=== PATIENT | female | born 1950 | race Asian ===

== ENCOUNTER 2017-10-07 14:32 | Emergency (ER) | payer MEDICARE ==
[~2017-10-07] VITALS: Ht 157.5 cm; Wt 63.3 kg
[2017-10-07 14:34] VITALS: BP 160/62
[2017-10-07] MEDS ORDERED: ALBUTEROL/IPRATROPIUM 2.5MG/0.5MG, 3 ML NPPB ONE (15:30)
[2017-10-07] MEDS ORDERED: ALBUTEROL/IPRATROPIUM 2.5MG/0.5MG, 3 ML ONE (15:31)
== END 2017-10-07 15:55 | disposition home or self-care (01) ==
LOC: ED 15:49
DX: J98.01 Acute bronchospasm (principal); E11.9 Type 2 diabetes mellitus without complications; I10 Essential (primary) hypertension
CPT/HCPCS: 71046; 94640; 99284; J7512; J7620

== ENCOUNTER 2020-09-13 19:20 | Emergency (ER) | payer MEDICARE ==
[~2020-09-13] VITALS: Ht 157.5 cm; Wt 67.0 kg
--- NOTE | 2020-09-13 19:26 | NUR ---
CALLED 1X NIL
[2020-09-13] MEDS ORDERED: SODIUM CHLORIDE FLUSH 10ML SYR IVF ONE (20:00)
--- NOTE | 2020-09-13 21:00 | NUR ---
NO ANSWER X2 FOR BLOOD DRAW IN LOBBY
[2020-09-13 22:16] VITALS: BP 199/94
[2020-09-14] MEDS ORDERED: BUDE10.22 INH (02:35)
[2020-09-14] MEDS ORDERED: CLON0.1T2 PO (02:35)
[2020-09-14] MEDS ORDERED: CYAN250013 PO (02:35)
[2020-09-14] MEDS ORDERED: CHOL1POW PO (02:35)
[2020-09-14] MEDS ORDERED: ASCO120P2 PO (02:35)
[2020-09-14] MEDS ORDERED: MULT-826 PO (02:35)
[2020-09-14] MEDS ORDERED: ROSU40TA22 PO (02:35)
[2020-09-14] MEDS ORDERED: LEVO25TA2 PO (02:35)
[2020-09-14] MEDS ORDERED: LOSA25TA12 PO (02:35)
[2020-09-14] MEDS ORDERED: FAMO25PO2 PO (02:35)
[2020-09-14] MEDS ORDERED: DULA1.5P INJ (09:50)
== END 2020-09-13 22:46 | disposition left against medical advice (07) ==
LOC: ED 20:00
DX: I10 Essential (primary) hypertension (principal); R22.43 Localized swelling, mass and lump, lower limb, bilateral; R07.9 Chest pain, unspecified; R14.0 Abdominal distension (gaseous); R94.31 Abnormal electrocardiogram [ECG] [EKG]; E11.9 Type 2 diabetes mellitus without complications
CPT/HCPCS: 71045; 93005; 99283

== ENCOUNTER 2020-09-13 23:19 | Inpatient (IN) | payer MEDICARE ==
[~2020-09-13] VITALS: Ht 157.5 cm; Wt 69.1 kg
[2020-09-14] VITALS (8 sets, daily range): BP systolic 160–210; BP diastolic 75–106
[2020-09-14] MEDS ORDERED: LABETALOL 5MG/ML, 20ML IVPush ONE
[2020-09-14] MEDS ORDERED: SODIUM CHLORIDE FLUSH 10ML SYR IVF ONE
[2020-09-14 00:13] LABS: BASOPHILS % (AUTO) 1 % (0-1); EOSINOPHILS % (AUTO) 4 % (1-7); LYMPHOCYTES % (AUTO) 11 % (22-44); MEAN CORPUSCULAR HEMOGLOBIN 32.3 pg (27.0-34.8); MEAN CORPUSCULAR HGB CONC 33.8 g/dL (32.4-35.8); MEAN PLATELET VOLUME 8.4 fL (7.4-10.4); MONOCYTES % (AUTO) 8 % (2-9); NEUTROPHILS % (AUTO) 76 % (42-75); PLATELET COUNT 290 x10^3/uL (130-400); RED BLOOD COUNT 2.94 x10^6/uL (3.82-5.3); RED CELL DISTRIBUTION WIDTH 13.2 % (9.6-15.2)
[2020-09-14 00:14] LABS: MD NO
[2020-09-14] MEDS ORDERED: NITROGLYCERIN OINT 2%, 1GM TP ONE ×2 (00:14)
[2020-09-14] MEDS ORDERED: LABETALOL 5MG/ML, 20ML ONE (00:14)
[2020-09-14 00:24] LABS: ALANINE AMINOTRANSFERASE 22 U/L (12-78); ALBUMIN 1.8 g/dL (3.4-5.0); ANION GAP 4 mmol/L (5-15); CALCIUM 7.8 mg/dL (8.5-10.1); CHLORIDE 115 mmol/L (98-107); CREATININE 2.48 mg/dL (0.55-1.02)
[2020-09-14 00:28] LABS: ALKALINE PHOSPHATASE 90 U/L (45-117); BILIRUBIN,TOTAL 0.2 mg/dL (0.2-1.0); TOTAL PROTEIN 4.8 g/dL (6.4-8.2); TROPONIN I < 0.015 ng/mL (0.000-0.045)
[2020-09-14] MEDS ORDERED: FUROSEMIDE 40 MG/4 ML IVPush ONE (01:00)
[2020-09-14] MEDS ORDERED: SODIUM CHLORIDE 0.9% 1,000 ML IV ONE (01:00)
[2020-09-14] MEDS ORDERED: FUROSEMIDE 40 MG/4 ML ONE (02:12)
[2020-09-14] MEDS ORDERED: ONDANSETRON ODT 4 MG PO PRN (02:30)
[2020-09-14] MEDS ORDERED: OXYcodone IR 5MG TABLET PO PRN (02:30)
[2020-09-14] MEDS ORDERED: ONDANSETRON 2MG/ML, 2ML IVPush PRN (02:30)
[2020-09-14] MEDS ORDERED: DOCUSATE 100 MG CAPSULE PO PRN (02:30)
[2020-09-14] MEDS ORDERED: morphine SULFATE 10 MG/ML, 1ML IVPush PRN (02:30)
[2020-09-14] MEDS ORDERED: POLYETHYLENE GLYCOL 17 GM PACKET PO PRN (02:30)
[2020-09-14] MEDS ORDERED: BISACODYL 10 MG SUPP PR PRN (02:30)
[2020-09-14] MEDS ORDERED: PROMETHAZINE 25 MG/ML, 1ML IM PRN (02:30)
[2020-09-14] MEDS ORDERED: BUDE10.22 INH (02:35)
[2020-09-14] MEDS ORDERED: FAMO25PO2 PO (02:35)
[2020-09-14] MEDS ORDERED: LEVO25TA2 PO (02:35)
[2020-09-14] MEDS ORDERED: CHOL1POW PO (02:35)
[2020-09-14] MEDS ORDERED: CLON0.1T2 PO (02:35)
[2020-09-14] MEDS ORDERED: MULT-826 PO (02:35)
[2020-09-14] MEDS ORDERED: CYAN250013 PO (02:35)
[2020-09-14] MEDS ORDERED: ROSU40TA22 PO (02:35)
[2020-09-14] MEDS ORDERED: ASCO120P2 PO (02:35)
[2020-09-14] MEDS ORDERED: LOSA25TA12 PO (02:35)
--- NOTE | 2020-09-14 02:51 | NUR ---
Pt calm in bed. Pt mediated per order. Pt remains A&O. Pt with littel changes in BP. Pt states pain in left shoulder has improved. Pt needs met. Call light in reach. Will continue to monitor.
[2020-09-14] MEDS ORDERED: HEPARIN 5,000 UNITS/ML, 1ML ONE (04:06)
[2020-09-14] MEDS: HEPARIN 5,000 UNITS/ML, 1ML SQ SCH ×3 (04:09→21:00)
--- NOTE | 2020-09-14 04:22 | NUR ---
Pt calm in bed. No needs at this time. Pt with no changes. BP remains elevated. Pt denies CP or SOB. Needs met. Call light in reach.
--- NOTE | 2020-09-14 05:11 | NUR ---
Pt up to BR, stable on feet. Denies any lightheadedness. Denies CP or SOB. pt back to bed, on monitor. Needs met. Call light in reach. Will monitor.
--- NOTE | 2020-09-14 06:01 | NUR ---
Pt resting, no changes. Call light in reach. Needs met.
--- NOTE | 2020-09-14 07:00 | NUR ---
Report from alma hutchison With assessment Patient reports arm/chest pain "totally gone" bp 172/99 updated on estimated poc moved to hospital bed fingerstick blood sugar checked (75)-then breakfast meal provided
[2020-09-14] MEDS ORDERED: LIDODERM 5% PATCH TD ONE ×2 (09:03→09:30)
[2020-09-14 09:22] LABS: ALBUMIN 1.8 g/dL (3.4-5.0); ANION GAP 7 mmol/L (5-15); CALCIUM 8.2 mg/dL (8.5-10.1); CHLORIDE 118 mmol/L (98-107)
[2020-09-14 09:25] LABS: ALANINE AMINOTRANSFERASE 19 U/L (12-78); ALKALINE PHOSPHATASE 77 U/L (45-117); BILIRUBIN,TOTAL 0.6 mg/dL (0.2-1.0); CREATININE 2.56 mg/dL (0.55-1.02); TOTAL PROTEIN 4.9 g/dL (6.4-8.2)
[2020-09-14] MEDS ORDERED: DULA1.5P INJ (09:50)
[2020-09-14] MEDS: hydrALAzine 20 MG/ML, 1ML IVPush PRN ×3 (12:22→17:18)
[2020-09-14] MEDS: LABETALOL 5MG/ML, 20ML IVPush PRN ×2 (13:43→18:49)
[2020-09-14 13:52] LABS: CHLORIDE,URINE RANDOM 83 mmol/L; POTASSIUM,URINE RANDOM 31 mmol/L; SODIUM,URINE RANDOM 69 mmol/L
[2020-09-14 13:54] LABS: MICROSCOPIC AUTO
[2020-09-14] MEDS: INSULIN LISPRO 100 UNITS/ML, PEN SQ-INSULIN SCH ×2 (16:30→20:32)
[2020-09-14] MEDS ORDERED: GLUCAGON 1 MG IM PRN (16:30)
[2020-09-14] MEDS ORDERED: DEXTROSE 50%, 50ML SYRINGE IVPush PRN (16:30)
[2020-09-14] MEDS ORDERED: DEXTROSE 4 GM TAB.CHEW PO PRN (16:30)
[2020-09-14] MEDS: ACETAMINOPHEN 325 MG TABLET PO PRN ×2 (16:43→21:06)
[2020-09-14] MEDS: CARVEDILOL 12.5 MG TABLET PO SCH (17:16)
[2020-09-14] MEDS: SODIUM CHLORIDE FLUSH 10ML SYR IVF SCH (21:00)
[2020-09-15] VITALS (7 sets, daily range): BP systolic 164–199; BP diastolic 73–89
[2020-09-15] MEDS: LABETALOL 5MG/ML, 20ML IVPush PRN (01:30)
[2020-09-15] MEDS: hydrALAzine 20 MG/ML, 1ML IVPush PRN ×2 (02:58→11:23)
[2020-09-15] MEDS: HEPARIN 5,000 UNITS/ML, 1ML SQ SCH ×3 (04:26→20:27)
[2020-09-15 05:01] LABS: BASOPHILS % (AUTO) 1 % (0-1); EOSINOPHILS % (AUTO) 2 % (1-7); LYMPHOCYTES % (AUTO) 10 % (22-44); MEAN CORPUSCULAR HEMOGLOBIN 31.6 pg (27.0-34.8); MEAN CORPUSCULAR HGB CONC 33.4 g/dL (32.4-35.8); MEAN PLATELET VOLUME 8.3 fL (7.4-10.4); MONOCYTES % (AUTO) 9 % (2-9); NEUTROPHILS % (AUTO) 79 % (42-75); PLATELET COUNT 272 x10^3/uL (130-400); RED BLOOD COUNT 2.88 x10^6/uL (3.82-5.3); RED CELL DISTRIBUTION WIDTH 13.2 % (9.6-15.2)
[2020-09-15 05:02] LABS: MD NO
[2020-09-15] MEDS: CARVEDILOL 12.5 MG TABLET PO SCH (05:09)
[2020-09-15 05:15] LABS: CHLORIDE 119 mmol/L (98-107)
[2020-09-15 05:43] LABS: ALANINE AMINOTRANSFERASE 16 U/L (12-78); ALBUMIN 1.7 g/dL (3.4-5.0); ALKALINE PHOSPHATASE 69 U/L (45-117); ANION GAP 7 mmol/L (5-15); BILIRUBIN,TOTAL 0.3 mg/dL (0.2-1.0); CHOL/HDL RATIO 4.5; CHOLESTEROL, TOTAL 239 mg/dL (140-239); CREATININE 2.41 mg/dL (0.55-1.02); HDL CHOL % 22 % (28-40); HDL CHOLESTEROL (DIRECT) 53 mg/dL (40-60); LDL CHOLESTEROL,CALCULATED 145 mg/dL (54-169); LDL/HDL RATIO 2.7 (0.5-3.0); TOTAL PROTEIN 4.7 g/dL (6.4-8.2); TRIGLYCERIDES 203 mg/dL (50-200); VLDL CHOLESTEROL 41 mg/dL (0-25)
[2020-09-15] MEDS: INSULIN LISPRO 100 UNITS/ML, PEN SQ-INSULIN SCH ×4 (07:00→20:27)
[2020-09-15] MEDS ORDERED: FUROSEMIDE 40 MG/4 ML IV SCH (09:00)
[2020-09-15] MEDS: SODIUM CHLORIDE FLUSH 10ML SYR IVF SCH ×2 (09:32→20:27)
[2020-09-15] MEDS ORDERED: HYDR-3342 PO (11:05)
[2020-09-15] MEDS ORDERED: CARV-39 PO (11:05)
[2020-09-15] MEDS ORDERED: FUROSEMIDE 40 MG TABLET PO SCH (12:00)
[2020-09-15] MEDS: POTASSIUM CHLORIDE 20 MEQ PACKET PO SCH (13:59)
[2020-09-15] MEDS: FUROSEMIDE 40 MG TABLET PO SCH (16:56)
[2020-09-15] MEDS: CARVEDILOL 25 MG TABLET PO SCH (17:01)
[2020-09-16] VITALS (15 sets, daily range): BP systolic 158–202; BP diastolic 74–91
[2020-09-16] MEDS: hydrALAzine 20 MG/ML, 1ML IVPush PRN ×3 (02:07→14:24)
[2020-09-16] MEDS: LABETALOL 5MG/ML, 20ML IVPush PRN ×3 (02:41→15:48)
[2020-09-16] MEDS: HEPARIN 5,000 UNITS/ML, 1ML SQ SCH ×3 (04:00→20:54)
[2020-09-16] MEDS ORDERED: hydrALAzine 20 MG/ML, 1ML IV ONE (04:30)
[2020-09-16 05:06] LABS: BASOPHILS % (AUTO) 1 % (0-1); EOSINOPHILS % (AUTO) 4 % (1-7); LYMPHOCYTES % (AUTO) 16 % (22-44); MEAN CORPUSCULAR HGB CONC 33.8 g/dL (32.4-35.8); MEAN PLATELET VOLUME 9.1 fL (7.4-10.4); MONOCYTES % (AUTO) 9 % (2-9); NEUTROPHILS % (AUTO) 70 % (42-75); PLATELET COUNT 296 x10^3/uL (130-400); RED BLOOD COUNT 3.08 x10^6/uL (3.82-5.3); RED CELL DISTRIBUTION WIDTH 13.5 % (9.6-15.2)
[2020-09-16 05:10] LABS: ANION GAP 7 mmol/L (5-15); CALCIUM 8.9 mg/dL (8.5-10.1); CHLORIDE 116 mmol/L (98-107); CREATININE 2.43 mg/dL (0.55-1.02); MD NO
[2020-09-16] MEDS: CARVEDILOL 25 MG TABLET PO SCH ×2 (05:50→17:12)
[2020-09-16] MEDS: INSULIN LISPRO 100 UNITS/ML, PEN SQ-INSULIN SCH ×4 (07:51→19:32)
[2020-09-16] MEDS: ACETAMINOPHEN 325 MG TABLET PO PRN (07:56)
[2020-09-16] MEDS: POTASSIUM CHLORIDE 20 MEQ PACKET PO SCH (07:56)
[2020-09-16] MEDS: FUROSEMIDE 40 MG TABLET PO SCH (07:56)
[2020-09-16] MEDS: SODIUM CHLORIDE FLUSH 10ML SYR IVF SCH ×2 (07:57→20:56)
[2020-09-16] MEDS: FUROSEMIDE 80 MG TABLET PO SCH (14:24)
[2020-09-16] MEDS: VALSARTAN 80 MG TABLET PO SCH (20:55)
[2020-09-16] MEDS: SYMBICORT PO SCH (21:00)
[2020-09-17] VITALS (8 sets, daily range): BP systolic 166–200; BP diastolic 66–92
[2020-09-17] MEDS: hydrALAzine 20 MG/ML, 1ML IVPush PRN ×3 (00:58→13:49)
[2020-09-17] MEDS: LABETALOL 5MG/ML, 20ML IVPush PRN ×4 (02:45→22:57)
[2020-09-17] MEDS: CARVEDILOL 25 MG TABLET PO SCH ×2 (05:13→18:45)
[2020-09-17] MEDS: HEPARIN 5,000 UNITS/ML, 1ML SQ SCH ×3 (05:14→20:41)
[2020-09-17 05:48] LABS: BASOPHILS % (AUTO) 1 % (0-1); EOSINOPHILS % (AUTO) 7 % (1-7); LYMPHOCYTES % (AUTO) 18 % (22-44); MEAN CORPUSCULAR HEMOGLOBIN 32.5 pg (27.0-34.8); MEAN CORPUSCULAR HGB CONC 34.2 g/dL (32.4-35.8); MEAN PLATELET VOLUME 8.5 fL (7.4-10.4); MONOCYTES % (AUTO) 10 % (2-9); NEUTROPHILS % (AUTO) 64 % (42-75); PLATELET COUNT 292 x10^3/uL (130-400); RED CELL DISTRIBUTION WIDTH 13.3 % (9.6-15.2)
[2020-09-17 05:49] LABS: MD NO
[2020-09-17 05:58] LABS: ANION GAP 7 mmol/L (5-15); CALCIUM 8.3 mg/dL (8.5-10.1); CHLORIDE 115 mmol/L (98-107); CREATININE 2.25 mg/dL (0.55-1.02)
[2020-09-17] MEDS: INSULIN LISPRO 100 UNITS/ML, PEN SQ-INSULIN SCH ×4 (07:00→20:42)
[2020-09-17] MEDS: ACETAMINOPHEN 325 MG TABLET PO PRN (08:21)
[2020-09-17] MEDS: POTASSIUM CHLORIDE 20 MEQ PACKET PO SCH (08:21)
[2020-09-17] MEDS: FUROSEMIDE 80 MG TABLET PO SCH ×2 (08:21→16:07)
[2020-09-17] MEDS: SYMBICORT PO SCH ×2 (08:22→20:40)
[2020-09-17] MEDS: SODIUM CHLORIDE FLUSH 10ML SYR IVF SCH ×2 (08:22→20:40)
[2020-09-17] MEDS: VALSARTAN 80 MG TABLET PO SCH ×2 (20:37→20:38)
[2020-09-18] VITALS (11 sets, daily range): BP systolic 174–209; BP diastolic 80–95
[2020-09-18] MEDS: hydrALAzine 20 MG/ML, 1ML IVPush PRN ×5 (01:11→20:41)
[2020-09-18] MEDS: LABETALOL 5MG/ML, 20ML IVPush PRN ×2 (03:17→13:13)
[2020-09-18] MEDS: HEPARIN 5,000 UNITS/ML, 1ML SQ SCH ×4 (04:35→20:30)
[2020-09-18] MEDS: CARVEDILOL 25 MG TABLET PO SCH ×2 (05:20→18:07)
[2020-09-18 05:34] LABS: BASOPHILS % (AUTO) 1 % (0-1); EOSINOPHILS % (AUTO) 5 % (1-7); LYMPHOCYTES % (AUTO) 15 % (22-44); MEAN CORPUSCULAR HEMOGLOBIN 32.1 pg (27.0-34.8); MEAN CORPUSCULAR HGB CONC 34.1 g/dL (32.4-35.8); MEAN PLATELET VOLUME 8.6 fL (7.4-10.4); MONOCYTES % (AUTO) 10 % (2-9); NEUTROPHILS % (AUTO) 69 % (42-75); PLATELET COUNT 278 x10^3/uL (130-400); RED BLOOD COUNT 2.84 x10^6/uL (3.82-5.3)
[2020-09-18 05:38] LABS: MD NO
[2020-09-18 05:44] LABS: ANION GAP 7 mmol/L (5-15); CALCIUM 8.5 mg/dL (8.5-10.1); CHLORIDE 114 mmol/L (98-107)
[2020-09-18 05:45] LABS: CREATININE 2.26 mg/dL (0.55-1.02)
[2020-09-18] MEDS: INSULIN LISPRO 100 UNITS/ML, PEN SQ-INSULIN SCH ×4 (07:00→19:49)
[2020-09-18] MEDS: ACETAMINOPHEN 325 MG TABLET PO PRN (08:56)
[2020-09-18] MEDS: POTASSIUM CHLORIDE 20 MEQ PACKET PO SCH (08:56)
[2020-09-18] MEDS: SYMBICORT PO SCH ×2 (08:58→20:44)
[2020-09-18] MEDS: FUROSEMIDE 80 MG TABLET PO SCH ×2 (09:02→15:15)
[2020-09-18] MEDS: SODIUM CHLORIDE FLUSH 10ML SYR IVF SCH ×2 (11:13→20:45)
[2020-09-18] MEDS ORDERED: VALSARTAN 160 MG TABLET PO SCH (21:00)
[2020-09-19] VITALS: BP 173/81
[2020-09-19] MEDS: CARVEDILOL 25 MG TABLET PO SCH (04:22)
[2020-09-19] MEDS: HEPARIN 5,000 UNITS/ML, 1ML SQ SCH ×2 (04:22→12:30)
[2020-09-19] MEDS: hydrALAzine 20 MG/ML, 1ML IVPush PRN ×2 (04:35→15:01)
[2020-09-19] MEDS: LABETALOL 5MG/ML, 20ML IVPush PRN ×2 (04:36→14:45)
[2020-09-19 06:58] VITALS: BP 158/85
[2020-09-19 08:23] LABS: ANION GAP 8 mmol/L (5-15); CALCIUM 8.4 mg/dL (8.5-10.1); CHLORIDE 113 mmol/L (98-107); CREATININE 2.07 mg/dL (0.55-1.02)
[2020-09-19] MEDS: SYMBICORT PO SCH (08:35)
[2020-09-19] MEDS: FUROSEMIDE 80 MG TABLET PO SCH (08:39)
[2020-09-19] MEDS: POTASSIUM CHLORIDE 20 MEQ PACKET PO SCH (08:40)
[2020-09-19] MEDS ORDERED: CLON0.1T22 PO (10:48)
[2020-09-19] MEDS ORDERED: FURO80TA3 PO (10:48)
[2020-09-19] MEDS ORDERED: CARV25TA12 PO (10:48)
[2020-09-19] MEDS ORDERED: VALS160T27 PO (10:48)
[2020-09-19 14:43] VITALS: BP 199/96
[2020-09-19] MEDS: ACETAMINOPHEN 325 MG TABLET PO PRN (14:46)
== END 2020-09-19 16:04 | disposition home or self-care (01) | DRG 291 ==
LOC: ED 23:30 → EDIP 09-14 01:44 → 5SO 09-14 10:01
PROVIDERS: ADMIT Internal Medicine; ATTEND Internal Medicine
DX: I13.0 Hypertensive heart and chronic kidney disease with heart failure and stage 1 through stage 4 chronic kidney disease, or unspecified chronic kidney disease (principal); I50.21 Acute systolic (congestive) heart failure; I16.9 Hypertensive crisis, unspecified; N17.9 Acute kidney failure, unspecified; E11.22 Type 2 diabetes mellitus with diabetic chronic kidney disease; D63.1 Anemia in chronic kidney disease; E03.9 Hypothyroidism, unspecified; E78.5 Hyperlipidemia, unspecified; I16.0 Hypertensive urgency; I25.10 Atherosclerotic heart disease of native coronary artery without angina pectoris; N18.32 Chronic kidney disease, stage 3b; Z88.8 Allergy status to other drugs, medicaments and biological substances
CPT/HCPCS: 36415; 71045; 76770; 80048; 80053; 80061; 81001; 82436; 82607; 82962; 83036; 83735; 83880; 84100; 84133; 84300; 84443; 84484; 85025; 93005; 93306; 93976; 96374; 96375; 99291; G0378; J1644; J1940; J0360; J7030

== ENCOUNTER 2021-04-21 03:12 | Inpatient (IN) | payer MEDICARE ==
[~2021-04-21] VITALS: Ht 157.5 cm; Wt 64.1 kg
[~2021-04-21 03:12] MED LIST: ASCO120P2 PO; BUDE10.22 INH; CARV-39 PO; CARV25TA12 PO; CHOL1POW PO; CLON0.1T2 PO; CLON0.1T22 PO; CYAN250013 PO; DULA1.5P INJ; FAMO25PO2 PO; FURO80TA3 PO; HYDR-3342 PO; LEVO25TA2 PO; LOSA25TA12 PO; MULT-826 PO; ROSU40TA22 PO; VALS160T27 PO
--- NOTE | 2021-04-21 04:05 | NUR ---
PT BIBA FOR ABDOMINAL PAIN STARTING AFTER PT GOT DIALYSIS YESTERDAY, PT RECENTLY DIAGNOSED WITH KIDNEY FAILURE, PT HAS DIALYSIS CATHETER IN PLACE RIGH UPPER CHEST, PT RECIEVED 75MCGS OF IV FENTANYL, PT HAS 22G IV PLACED IN HER LEFT WRIST
[2021-04-21] MEDS ORDERED: MORPHINE SULFATE 4 MG/ML, 1ML IVPush PRN (04:30)
[2021-04-21] MEDS ORDERED: SODIUM CHLORIDE FLUSH 10ML SYR IVF ONE (04:30)
[2021-04-21] MEDS ORDERED: MORPHINE SULFATE 4 MG/ML, 1ML ONE (04:55)
[2021-04-21 05:01] LABS: BASOPHILS % (AUTO) 1 % (0-1); EOSINOPHILS % (AUTO) 0 % (1-7); LYMPHOCYTES % (AUTO) 5 % (22-44); MEAN CORPUSCULAR HEMOGLOBIN 31.5 pg (27.0-34.8); MEAN CORPUSCULAR HGB CONC 32.9 g/dL (32.4-35.8); MEAN PLATELET VOLUME 8.5 fL (7.4-10.4); MONOCYTES % (AUTO) 7 % (2-9); NEUTROPHILS % (AUTO) 87 % (42-75); PLATELET COUNT 324 x10^3/uL (130-400); RED BLOOD COUNT 3.03 x10^6/uL (3.82-5.3); RED CELL DISTRIBUTION WIDTH 13.9 % (9.6-15.2)
[2021-04-21 05:08] LABS: ALBUMIN 1.7 g/dL (3.4-5.0); ANION GAP 7 mmol/L (5-15); CALCIUM 8.2 mg/dL (8.5-10.1); CHLORIDE 98 mmol/L (98-107)
[2021-04-21 05:13] LABS: ALANINE AMINOTRANSFERASE 17 U/L (12-78); ALKALINE PHOSPHATASE 79 U/L (45-117); BILIRUBIN,TOTAL 0.3 mg/dL (0.2-1.0); TOTAL PROTEIN 5.3 g/dL (6.4-8.2)
[2021-04-21] MEDS ORDERED: OMNIPAQUE 350 MG/ML, 100ML BOTTLE ONE (06:18)
[2021-04-21 06:28] LABS: MICROSCOPIC INDICATED
[2021-04-21] MEDS ORDERED: CEFTRIAXONE 1,000 MG in DEXTROSE 5% 50 ML IVPB ONE (07:30)
--- NOTE | 2021-04-21 07:33 | NUR ---
REPORT TO GLORY MCCALL PRE-OP SURGERY
--- NOTE | 2021-04-21 07:41 | NUR ---
LAST ORAL INTAKE WAS LUNCH AT 1200 04/20/2021
--- NOTE | 2021-04-21 07:42 | NUR ---
RAPID COVID SWAB WALKED TO THE LAB.
[2021-04-21] MEDS ORDERED: MIDAZOLAM 1 MG/ML, 2ML ONE (07:49)
[2021-04-21] MEDS ORDERED: FENTANYL PF 250 MCG/5ML ONE (07:50)
[2021-04-21] MEDS ORDERED: BUPIVACAINE/PF 0.5% ONE (07:55)
[2021-04-21] MEDS ORDERED: EPINEPHRINE 1 MG/ML, 1ML ONE (07:55)
[2021-04-21] MEDS ORDERED: ROCURONIUM 10MG/ML,5ML ONE (07:56)
[2021-04-21] MEDS ORDERED: CHLORHEXIDINE 15 ML UDC ONE (07:59)
[2021-04-21] MEDS ORDERED: LABETALOL 5MG/ML, 20ML IVPush PRN (08:00)
[2021-04-21] MEDS ORDERED: ONDANSETRON 2MG/ML, 2ML IVPush PRN ×2 (08:00)
[2021-04-21] MEDS ORDERED: morphine SULFATE 10 MG/ML, 1ML IVPush PRN (08:00)
[2021-04-21] MEDS ORDERED: ONDANSETRON ODT 4 MG PO PRN (08:00)
[2021-04-21] MEDS ORDERED: LABETALOL 5MG/ML, 20ML IV PRN (08:00)
[2021-04-21] MEDS ORDERED: SODIUM CHLORIDE 0.9% 1,000 ML IV SCH (08:00)
[2021-04-21] MEDS ORDERED: OXYcodone IR 5MG TABLET PO PRN (08:00)
[2021-04-21] MEDS ORDERED: hydrALAzine 20 MG/ML, 1ML IV PRN (08:00)
[2021-04-21] MEDS ORDERED: OXYcodone 5 MG/5 ML ORAL.SOL UDC PO PRN (08:00)
[2021-04-21] MEDS ORDERED: PROMETHAZINE 25 MG/ML, 1ML IM PRN (08:00)
[2021-04-21] MEDS ORDERED: FENTANYL PF 100 MCG/2ML IV PRN (08:00)
[2021-04-21] MEDS ORDERED: HYDROmorphone 1 MG/ML, 1ML INJ IVPush PRN (08:00)
[2021-04-21] MEDS ORDERED: ACETAMINOPHEN 325 MG TABLET PO PRN ×2 (08:00)
[2021-04-21] MEDS ORDERED: hydrALAzine 20 MG/ML, 1ML IVPush PRN (08:00)
[2021-04-21] MEDS ORDERED: CHLORHEXIDINE 15 ML UDC PO ONE (08:00)
[2021-04-21] MEDS ORDERED: PROMETHAZINE 25 MG/ML, 1ML IVPush PRN (08:00)
[2021-04-21] MEDS ORDERED: DEXAMETHASONE 4 MG/ML, 5ML ONE (08:23)
[2021-04-21] MEDS ORDERED: PROPOFOL 10 MG/ML, 20ML ONE (08:23)
[2021-04-21] MEDS ORDERED: SUCCINYLCHOLINE 20 MG/ML, 10ML ONE (08:27)
[2021-04-21] MEDS ORDERED: EPHEDRINE 50 MG/ML, 1ML ONE (08:44)
[2021-04-21] MEDS ORDERED: PHENYLEPHRINE 10 MG/ML ONE (08:44)
[2021-04-21] MEDS ORDERED: BUPIVACAINE/PF-EPI 0.5% 1:200K INFIL ONE (08:58)
[2021-04-21] MEDS ORDERED: ONDANSETRON 2MG/ML, 2ML ONE ×2 (09:17→10:05)
[2021-04-21] MEDS ORDERED: hydrALAzine 20 MG/ML, 1ML ONE (10:11)
[2021-04-21] MEDS ORDERED: LABETALOL 5MG/ML, 20ML ONE (10:24)
[2021-04-21] MEDS ORDERED: PROMETHAZINE 25 MG/ML, 1ML ONE (10:27)
[2021-04-21 11:48] VITALS: BP 145/80
[2021-04-21 14:09] VITALS: BP 134/68
[2021-04-21] MEDS ORDERED: CLON0.2T PO (14:22)
[2021-04-21] MEDS ORDERED: CHOL10003 PO (14:22)
[2021-04-21] MEDS ORDERED: LEVO150T5 PO (14:22)
[2021-04-21] MEDS ORDERED: LOSA100T14 PO (14:22)
[2021-04-21] MEDS ORDERED: CYAN-27 PO (14:22)
[2021-04-21] MEDS ORDERED: FERR-46 PO ×2 (14:22)
[2021-04-21] MEDS ORDERED: BUDE10.22 INH (14:22)
[2021-04-21] MEDS ORDERED: LINA5TAB PO (14:22)
[2021-04-21] MEDS ORDERED: AMLO-211 PO (14:22)
[2021-04-21] MEDS ORDERED: VITA100020 PO (14:22)
[2021-04-21] MEDS ORDERED: FAMO20TA7 PO (14:22)
[2021-04-21 20:27] VITALS: BP 145/79
[2021-04-21] MEDS: FAMOTIDINE 20 MG TABLET PO SCH (21:23)
[2021-04-21] MEDS: ATORVASTATIN 80 MG TABLET PO SCH (21:24)
[2021-04-21] MEDS: FERROUS SULFATE 325 MG TABLET PO SCH (21:24)
[2021-04-21] MEDS: AMLODIPINE 10 MG TAB PO SCH (21:24)
[2021-04-21] MEDS: FLUTICASONE/VILANTEROL 200-25MCG/INH INH SCH (22:07)
[2021-04-22 00:02] VITALS: BP 119/64
[2021-04-22 04:11] VITALS: BP 115/59
[2021-04-22 05:47] LABS: CHLORIDE 98 mmol/L (98-107)
[2021-04-22 06:01] LABS: ALANINE AMINOTRANSFERASE 13 U/L (12-78); ALBUMIN 1.5 g/dL (3.4-5.0); ALKALINE PHOSPHATASE 66 U/L (45-117); ANION GAP 10 mmol/L (5-15); BILIRUBIN,TOTAL 0.2 mg/dL (0.2-1.0); CALCIUM 7.8 mg/dL (8.5-10.1); CHOL/HDL RATIO 4.7; CHOLESTEROL, TOTAL 267 mg/dL (140-239); CREATININE 3.71 mg/dL (0.55-1.02); HDL CHOL % 21 % (28-40); HDL CHOLESTEROL (DIRECT) 57 mg/dL (40-60); LDL CHOLESTEROL,CALCULATED 180 mg/dL (54-169); LDL/HDL RATIO 3.2 (0.5-3.0); TOTAL PROTEIN 4.6 g/dL (6.4-8.2); TRIGLYCERIDES 151 mg/dL (50-200); VLDL CHOLESTEROL 30 mg/dL (0-25)
[2021-04-22 06:41] LABS: BASOPHILS % (AUTO) 0 % (0-1); EOSINOPHILS % (AUTO) 0 % (1-7); LYMPHOCYTES % (AUTO) 5 % (22-44); MEAN CORPUSCULAR HEMOGLOBIN 31.4 pg (27.0-34.8); MEAN CORPUSCULAR HGB CONC 32.5 g/dL (32.4-35.8); MEAN PLATELET VOLUME 8.6 fL (7.4-10.4); MONOCYTES % (AUTO) 9 % (2-9); NEUTROPHILS % (AUTO) 86 % (42-75); PLATELET COUNT 279 x10^3/uL (130-400); RED BLOOD COUNT 2.45 x10^6/uL (3.82-5.3); RED CELL DISTRIBUTION WIDTH 14.2 % (9.6-15.2)
[2021-04-22] MEDS: VITAMIN E 400 UNITS CAPSULE PO SCH (08:31)
[2021-04-22] MEDS: CYANOCOBALAMIN 1,000 MCG TABLET PO SCH (08:31)
[2021-04-22] MEDS: FAMOTIDINE 20 MG TABLET PO SCH (08:31)
[2021-04-22] MEDS: LOSARTAN 100 MG TAB PO SCH (08:31)
[2021-04-22] MEDS: CHOLECALCIFEROL 1,000 UNIT TABLET PO SCH (08:31)
[2021-04-22] MEDS: LINAGLIPTIN 5 MG TAB PO SCH (08:32)
[2021-04-22] MEDS: LEVOTHYROXINE 150 MCG TABLET PO SCH (08:32)
[2021-04-22] MEDS: ASCORBIC ACID 500 MG TABLET PO SCH (08:32)
[2021-04-22] MEDS: FLUTICASONE/VILANTEROL 200-25MCG/INH INH SCH ×2 (08:32→21:00)
[2021-04-22] MEDS ORDERED: FERROUS SULFATE 325 MG TABLET PO SCH (09:00)
[2021-04-22 11:00] VITALS: BP 134/66
[2021-04-22] MEDS ORDERED: DARBEPOETIN 100 MCG/ML SQ SCH (12:30)
[2021-04-22 14:09] LABS: ABSOLUTE RETICS # 0.108 x10^6/uL (0.5-2.5); RED BLOOD COUNT 2.37 x10^6/uL (3.82-5.3); RETICULOCYTE COUNT % 4.54 % (0.5-1.5)
[2021-04-22 19:19] VITALS: BP 136/71
[2021-04-22] MEDS ORDERED: FAMOTIDINE 20 MG TABLET PO SCH (21:00)
[2021-04-22] MEDS: ATORVASTATIN 80 MG TABLET PO SCH (21:16)
[2021-04-22] MEDS: AMLODIPINE 10 MG TAB PO SCH (21:16)
[2021-04-22] MEDS: FERROUS SULFATE 325 MG TABLET PO SCH (21:16)
[2021-04-23 00:16] VITALS: BP 112/61
[2021-04-23 06:17] LABS: BASOPHILS % (AUTO) 1 % (0-1); EOSINOPHILS % (AUTO) 2 % (1-7); LYMPHOCYTES % (AUTO) 11 % (22-44); MEAN CORPUSCULAR HEMOGLOBIN 32.2 pg (27.0-34.8); MEAN CORPUSCULAR HGB CONC 33.6 g/dL (32.4-35.8); MEAN PLATELET VOLUME 8.2 fL (7.4-10.4); MONOCYTES % (AUTO) 13 % (2-9); NEUTROPHILS % (AUTO) 73 % (42-75); PLATELET COUNT 252 x10^3/uL (130-400); RED BLOOD COUNT 2.27 x10^6/uL (3.82-5.3)
[2021-04-23 06:22] LABS: ALANINE AMINOTRANSFERASE 14 U/L (12-78); ALBUMIN 1.4 g/dL (3.4-5.0); ALKALINE PHOSPHATASE 63 U/L (45-117); BILIRUBIN,TOTAL 0.3 mg/dL (0.2-1.0); CALCIUM 7.9 mg/dL (8.5-10.1); CREATININE 2.37 mg/dL (0.55-1.02); TOTAL PROTEIN 4.2 g/dL (6.4-8.2)
[2021-04-23 06:50] LABS: ANION GAP 4 mmol/L (5-15); CHLORIDE 104 mmol/L (98-107)
[2021-04-23 07:59] VITALS: BP 145/75
[2021-04-23] MEDS ORDERED: ERGOCALCIFEROL 50,000 UNIT CAPSULE PO SCH ×2 (08:30→13:30)
[2021-04-23] MEDS: FLUTICASONE/VILANTEROL 200-25MCG/INH INH SCH (09:00)
[2021-04-23] MEDS: LINAGLIPTIN 5 MG TAB PO SCH (10:01)
[2021-04-23] MEDS: CYANOCOBALAMIN 1,000 MCG TABLET PO SCH (10:01)
[2021-04-23] MEDS: LEVOTHYROXINE 150 MCG TABLET PO SCH (10:01)
[2021-04-23] MEDS: LOSARTAN 100 MG TAB PO SCH (10:01)
[2021-04-23] MEDS: ASCORBIC ACID 500 MG TABLET PO SCH (10:02)
[2021-04-23] MEDS: VITAMIN E 400 UNITS CAPSULE PO SCH (10:02)
[2021-04-23] MEDS: CHOLECALCIFEROL 1,000 UNIT TABLET PO SCH (10:02)
[2021-04-23] MEDS ORDERED: ERGO500017 PO (13:31)
[2021-04-23 14:17] VITALS: BP 124/70
== END 2021-04-23 18:46 | disposition home or self-care (01) | DRG 335 ==
LOC: OR 07:48 → EDIP 08:01 → 4NE 11:39
PROVIDERS: ADMIT Internal Medicine; ATTEND Internal Medicine
PROC: 0DN84ZZ Release Small Intestine, Percutaneous Endoscopic Approach (ICD-10-PCS; 2021-04-21)
PROC: 0W9G4ZZ Drainage of Peritoneal Cavity, Percutaneous Endoscopic Approach (ICD-10-PCS; principal; 2021-04-21 08:00)
PROC: 5A1D70Z Performance of Urinary Filtration, Intermittent, Less than 6 Hours Per Day (ICD-10-PCS; 2021-04-22)
DX: K56.51 Intestinal adhesions [bands], with partial obstruction (principal); N18.6 End stage renal disease; K55.8 Other vascular disorders of intestine; K46.0 Unspecified abdominal hernia with obstruction, without gangrene; I13.2 Hypertensive heart and chronic kidney disease with heart failure and with stage 5 chronic kidney disease, or end stage renal disease; R18.8 Other ascites; D63.8 Anemia in other chronic diseases classified elsewhere; E03.9 Hypothyroidism, unspecified; E11.22 Type 2 diabetes mellitus with diabetic chronic kidney disease; E55.9 Vitamin D deficiency, unspecified; E78.5 Hyperlipidemia, unspecified; I50.9 Heart failure, unspecified; Z20.822 Contact with and (suspected) exposure to COVID-19; I25.10 Atherosclerotic heart disease of native coronary artery without angina pectoris; K76.0 Fatty (change of) liver, not elsewhere classified; M89.8X9 Other specified disorders of bone, unspecified site; N30.90 Cystitis, unspecified without hematuria; R94.8 Abnormal results of function studies of other organs and systems; Z84.1 Family history of disorders of kidney and ureter; Z99.2 Dependence on renal dialysis; Z88.1 Allergy status to other antibiotic agents; Z88.8 Allergy status to other drugs, medicaments and biological substances; Z79.84 Long term (current) use of oral hypoglycemic drugs
CPT/HCPCS: 36415; 74176; 74177; 80053; 80061; 81001; 82306; 82728; 83036; 83540; 83550; 83605; 83690; 83735; 84100; 84443; 84550; 85025; 85045; 86705; 86706; 87086; 87147; 87340; 87635; 90935; 93005; 96374; 96375; 99285; G0378; J0171; J0696; J0881; J1100; J2250; J2405; J2550; J2704; J3010; Q9967; J0330; J0360; J2270; J2370